=== PATIENT | female | born 2000 | race African-American/Black ===

== ENCOUNTER 2019-06-13 16:11 | Inpatient (IN) ==
[2019-06-13 17:02] LABS: Apearance,Urine CLEAR (Clear); Bacteria,Urine Occasional /HPF (Few); Bilirubin,Urine Negative (Negative); Blood, Urine Negative (Negative); Glucose,Urine (UA) Negative (Negative); Ketones,Urine Negative (Negative); Mucus,Urine Occasional /LPF (Occasional); Nitrite,Urine Negative (Negative); Protein,Urine Negative; RBC,Urine 3 /HPF (0-4); Squamous Epithelial Cell,Urine Occasional /HPF (0-10); Transitional Epi Cells,Urine Occasional /HPF (<1); Urine Color Yellow (Yellow); Urine Specific Gravity 1.015 (1.001-1.035); WBC,Urine 6 /HPF (0-6)
[2019-06-13] MEDS ORDERED: LACTATED RINGERS 1,000 ML IV SCH ×2 (17:06→19:00)
[2019-06-13] MEDS ORDERED: ONDANSETRON 4 MG/2 ML VIAL IV PRN (17:08)
[2019-06-13] MEDS ORDERED: TERBUTALINE 1 MG/1 ML VIAL SUBCUT PRN (17:08)
[2019-06-13] MEDS ORDERED: LACTATED RINGERS 1,000 ML IV ONE (17:08)
[2019-06-13] MEDS ORDERED: MEPERIDINE 50 MG/1 ML VIAL IV PRN (17:08)
[2019-06-13] MEDS ORDERED: TERBUTALINE 1 MG/1 ML VIAL SUBCUT ONE (17:19)
[2019-06-13] MEDS ORDERED: ONDANSETRON 4 MG/2 ML VIAL ONE (17:20)
[2019-06-13] MEDS ORDERED: MEPERIDINE 50 MG/1 ML VIAL ONE (17:20)
[2019-06-13 18:57] LABS: Basophils % 0.4 % (0.0-0.8); Eosinophils # 0.1 10*3/uL (0.0-0.87); Eosinophils % 0.9 % (0.00-10.9); Hemoglobin 8.2 GM/DL (12.0-16.0); Immature Granulocytes % 0.6 %; Immature Granulocytes Absolute 0.06 #; Lymphocytes # 2.1 10*3/uL (1.4-4.0); Lymphocytes % 19.8 % (21.3-54.2); Mean Corpuscular HGB Conc 29.3 GM/DL (32-36); Mean Corpuscular Volume 72.2 FL (87-102); Mean Platelet Volume 11.1 FL (9.6-12.0); Monocytes % 9.4 % (1.7-12.7); NRBC # 0.03 10*3/uL; Neutrophils % 68.9 % (38.7-73.9); Platelet Count 228 T/CUMM (130-400); Red Blood Count 3.88 MC/CUMM (3.8-5.5); Red Cell Distribution Width 18.6 % (9.3-17.3); White Blood Count 10.3 T/CUMM (4-12)
[2019-06-13 19:19] LABS: Albumin 2.9 G/DL (3.4-5.0); Bilirubin,Total 0.5 MG/DL (0.2-1.0); Calcium 8.8 MG/DL (8.5-10.1); Osmolality,Calculated 269.8 MOS/KG (273-304)
[2019-06-13] MEDS: CLINDAMYCIN INJ 900 MG in PREMIX 1 EACH IV SCH (19:39)
[2019-06-14] MEDS ORDERED: ALUMINUM/MAGNES/SIMETH MAX STR 30 ML UDCUP PO PRN (00:45)
[2019-06-14] MEDS: CLINDAMYCIN INJ 900 MG in PREMIX 1 EACH IV SCH ×2 (03:05→10:41)
[2019-06-14] MEDS ORDERED: OXYTOCIN/LR 20 UNIT/1,000 ML BAG IV SCH (07:00)
[2019-06-14] MEDS ORDERED: ePHEDrine 50 MG/ML AMP IV PRN (08:44)
[2019-06-14] MEDS ORDERED: PROMETHAZINE 25 MG/1 ML VIAL IM ONE (08:44)
[2019-06-14] MEDS ORDERED: NALOXONE 0.4 MG/ML VIAL IV PRN (08:44)
[2019-06-14] MEDS ORDERED: ONDANSETRON 4 MG/2 ML VIAL IV ONE (08:44)
[2019-06-14] MEDS ORDERED: CITRIC ACID/SODIUM CITRATE 30 ML UDCUP PO ONE (08:44)
[2019-06-14] MEDS ORDERED: diphenhydrAMINE 50 MG/1 ML VIAL IV PRN ×2 (08:44)
[2019-06-14] MEDS ORDERED: FAMOTIDINE 20 MG/2 ML VIAL IV ONE (08:44)
[2019-06-14] MEDS ORDERED: hydrOXYzine HCL 25 MG/1 ML VIAL IM PRN (08:44)
[2019-06-14] MEDS ORDERED: LACTATED RINGERS 1,000 ML IV ONE (08:44)
[2019-06-14] MEDS ORDERED: fentaNYL 2 MCG/ROPIV 0.2% EPID 100 ML EPIDURAL SCH (09:00)
[2019-06-14] MEDS ORDERED: OXYTOCIN/LR 20 UNIT/1,000 ML BAG IV ONE (10:18)
[2019-06-14] MEDS ORDERED: TRANEXAMIC ACID 1,000 MG/10 ML VIAL ONE (10:18)
[2019-06-14] MEDS ORDERED: LIDOCAINE 1% 50 ML VIAL ONE (10:18)
[2019-06-14] MEDS ORDERED: miSOPROStoL 200 MCG TABLET ONE (10:18)
[2019-06-14] MEDS ORDERED: METHYLERGONOVINE 0.2 MG/1 ML AMP ONE (10:18)
[2019-06-14] MEDS ORDERED: CARBOPROST TROMETHAMINE 250 MCG/ML AMP IM ONE (10:19)
[2019-06-14 11:44] LABS: Cord Arterial Blood HCO3 21.1 MMOL/L
[2019-06-14 11:45] LABS: Cord Venous Blood HCO3 22.7 MMOL/L; Cord Venous Blood PCO2 38.3 MMHG; Cord Venous Blood PO2 29.7 MMHG
[2019-06-14] MEDS ORDERED: LANOLIN 50% CREAM 0.3 OZ TUBE TOP PRN (13:51)
[2019-06-14] MEDS ORDERED: WITCH HAZEL PADS 100/JAR TOP PRN (13:51)
[2019-06-14] MEDS ORDERED: DIPH/TET/ACEL PERT BOOSTER VACCINE 0.5 ML VIAL IM ONE (13:51)
[2019-06-14] MEDS ORDERED: HYDROCORTISONE 2.5% RECTAL CREAM 30 GM TUBE TOP PRN (13:51)
[2019-06-14] MEDS ORDERED: BISACODYL 10 MG SUPP RECTAL PRN (13:51)
[2019-06-14] MEDS ORDERED: MEASLES/MUMPS/RUBELLA VACCINE 0.5 ML VIAL SUBCUT ONE (13:51)
[2019-06-14] MEDS ORDERED: ACETAMINOPHEN 325 MG TABLET PO PRN (13:51)
[2019-06-14] MEDS ORDERED: oxyCODONE/ACETAMINOPHEN 5-325 MG TABLET PO PRN ×2 (13:51)
[2019-06-14] MEDS ORDERED: BENZOCAINE 20%/MENTHOL 0.5% SPRAY 56 GM CAN TOP PRN (13:51)
[2019-06-14] MEDS ORDERED: RHO(D) IMMUNE GLOBULIN 300 MCG SYRINGE IM ONE (13:51)
[2019-06-14] MEDS: IBUPROFEN 800 MG TABLET PO PRN (20:05)
[2019-06-14] MEDS: DOCUSATE SODIUM 100 MG CAPSULE PO SCH (21:26)
[2019-06-15] MEDS: IBUPROFEN 800 MG TABLET PO PRN ×2 (03:41→23:18)
[2019-06-15 06:07] LABS: Basophils # 0.1 10*3/uL (0.0-0.2); Basophils % 0.5 % (0.0-0.8); Eosinophils # 0.1 10*3/uL (0.0-0.87); Hematocrit 25.2 VOL% (35.7-47.0); Hemoglobin 7.4 GM/DL (12.0-16.0); Immature Granulocytes % 0.7 %; Immature Granulocytes Absolute 0.06 #; Lymphocytes # 2.2 10*3/uL (1.4-4.0); Lymphocytes % 24.5 % (21.3-54.2); Mean Corpuscular HGB Conc 29.4 GM/DL (32-36); Mean Platelet Volume 10.9 FL (9.6-12.0); Monocytes % 11.4 % (1.7-12.7); Neutrophils % 61.9 % (38.7-73.9); Platelet Count 200 T/CUMM (130-400); Red Blood Count 3.55 MC/CUMM (3.8-5.5); Red Cell Distribution Width 18.5 % (9.3-17.3); White Blood Count 9.1 T/CUMM (4-12)
[2019-06-15] MEDS: FERROUS SULFATE 325 MG TABLET PO SCH ×2 (07:42→20:58)
[2019-06-15] MEDS: DOCUSATE SODIUM 100 MG CAPSULE PO SCH ×2 (07:42→20:58)
[2019-06-15] MEDS ORDERED: SODIUM CHLORIDE 0.9% 1,000 ML IV PRN (09:07)
[2019-06-15] MEDS ORDERED: FUROSEMIDE 40 MG/4 ML VIAL IV ONE (11:00)
[2019-06-15] MEDS ORDERED: ACETAMINOPHEN/CODEINE 300-30 MG TABLET PO PRN ×2 (17:31)
[2019-06-15 18:28] LABS: Hematocrit 35.6 VOL% (35.7-47.0); Hemoglobin 10.9 GM/DL (12.0-16.0)
[2019-06-16 05:14] LABS: Basophils # 0.1 10*3/uL (0.0-0.2); Basophils % 0.7 % (0.0-0.8); Eosinophils # 0.3 10*3/uL (0.0-0.87); Eosinophils % 2.4 % (0.00-10.9); Hematocrit 32.4 VOL% (35.7-47.0); Hemoglobin 9.9 GM/DL (12.0-16.0); Immature Granulocytes % 0.5 %; Immature Granulocytes Absolute 0.05 #; Lymphocytes # 2.4 10*3/uL (1.4-4.0); Lymphocytes % 22.2 % (21.3-54.2); Mean Corpuscular HGB Conc 30.6 GM/DL (32-36); Mean Corpuscular Volume 73.6 FL (87-102); Mean Platelet Volume 10.8 FL (9.6-12.0); Monocytes % 7.9 % (1.7-12.7); Neutrophils % 66.3 % (38.7-73.9); Platelet Count 239 T/CUMM (130-400); Red Cell Distribution Width 19.7 % (9.3-17.3); White Blood Count 10.7 T/CUMM (4-12)
[2019-06-16] MEDS: IBUPROFEN 800 MG TABLET PO PRN (05:30)
[2019-06-16] MEDS: DOCUSATE SODIUM 100 MG CAPSULE PO SCH (09:57)
[2019-06-16] MEDS: FERROUS SULFATE 325 MG TABLET PO SCH (09:57)
[2019-06-16 11:32] VITALS: BP 136/89
== END 2019-06-16 13:35 | disposition home or self-care (01) | DRG 560 ==
LOC: N.LDOUT 16:11 → N.LD 16:13 → N.OB 06-14 13:37
PROVIDERS: ADMIT Obstetrics & Gynecology; ATTEND Obstetrics & Gynecology

== ENCOUNTER 2021-12-12 12:32 | Inpatient (IN) ==
[2021-12-12] MEDS ORDERED: LACTATED RINGERS 1,000 ML IV ONE (13:19)
[2021-12-12 13:21] LABS: Mucus,Urine Occasional /LPF (Occasional); RBC,Urine 2 /HPF (0-4); Squamous Epithelial Cell,Urine Occasional /HPF (0-10)
[2021-12-12 13:22] LABS: Glucose,Urine (UA) Negative (Negative); Protein,Urine Negative (Negative); Urine Appearance Clear (Clear); Urine Color Yellow (Yellow); Urine Specific Gravity 1.025 (1.001-1.035)
[2021-12-12 13:23] LABS: Bilirubin,Urine Negative (Negative); Blood, Urine Moderate mg/dL (Negative); Ketones,Urine >=160 mg/dL (Negative); Nitrite,Urine Negative (Negative); Urine Urobilinogen 0.2 eU/dL (<2.0)
[2021-12-12] MEDS ORDERED: MEPERIDINE 50 MG/1 ML VIAL IV PRN (14:06)
[2021-12-12] MEDS ORDERED: ONDANSETRON 4 MG/2 ML VIAL IV PRN ×2 (14:06→20:03)
[2021-12-12] MEDS ORDERED: TRANEXAMIC ACID 1,000 MG in SODIUM CHLORIDE 0.9% 100 ML IV PRN (14:53)
[2021-12-12] MEDS ORDERED: miSOPROStoL 200 MCG TABLET RECTAL PRN (14:53)
[2021-12-12] MEDS ORDERED: OXYTOCIN/LR 20 UNIT/1,000 ML BAG IV ONE ×2 (14:53→20:03)
[2021-12-12] MEDS ORDERED: METHYLERGONOVINE 0.2 MG/1 ML AMP IM PRN (14:53)
[2021-12-12] MEDS ORDERED: BUTORPHANOL 2 MG/ML VIAL IV PRN (14:53)
[2021-12-12] MEDS ORDERED: CARBOPROST TROMETHAMINE 250 MCG/ML AMP IM PRN (14:53)
[2021-12-12] MEDS ORDERED: BETAMETH SODIUM PHOS/ACETATE 30 MG/5 ML VIAL IM ONE (14:55)
[2021-12-12] MEDS ORDERED: diphenhydrAMINE 50 MG/1 ML VIAL IV PRN (14:57)
[2021-12-12] MEDS ORDERED: ePHEDrine 50 MG/ML VIAL IV PRN (14:57)
[2021-12-12] MEDS ORDERED: NALOXONE 0.4 MG/ML VIAL IV PRN (14:57)
[2021-12-12] MEDS ORDERED: CITRIC ACID/SODIUM CITRATE 30 ML UDCUP PO ONE (14:57)
[2021-12-12] MEDS ORDERED: FAMOTIDINE 20 MG/2 ML VIAL IV ONE (14:57)
[2021-12-12] MEDS ORDERED: hydrOXYzine HCL 25 MG/1 ML VIAL IM PRN (14:57)
[2021-12-12] MEDS ORDERED: PROMETHAZINE 25 MG/1 ML VIAL IM PRN (14:57)
[2021-12-12] MEDS ORDERED: OXYTOCIN/LR 20 UNIT/1,000 ML BAG IV SCH (15:00)
[2021-12-12] MEDS ORDERED: fentaNYL 2 MCG/ROPIV 0.2% EPID 100 ML EPIDURAL SCH (15:00)
[2021-12-12] MEDS: LACTATED RINGERS 1,000 ML IV SCH ×2 (15:19→19:30)
[2021-12-12] MEDS ORDERED: LEVOFLOXACIN INJ 500 MG/100 ML PREMIX IV ONE (16:00)
[2021-12-12 16:06] LABS: Basophils % 0.4 % (0.0-0.8); Eosinophils # 0.1 10*3/uL (0.0-0.87); Eosinophils % 0.5 % (0.00-10.9); Hematocrit 32.1 VOL% (35.7-47.0); Hemoglobin 9.7 GM/DL (12.0-16.0); Immature Granulocytes % 0.6 %; Immature Granulocytes Absolute 0.06 #; Lymphocytes # 1.7 10*3/uL (1.4-4.0); Lymphocytes % 16.8 % (21.3-54.2); Mean Corpuscular HGB Conc 30.2 GM/DL (32-36); Mean Corpuscular Volume 75.9 FL (87-102); Mean Platelet Volume 10.1 FL (9.6-12.0); Monocytes # 0.7 10*3/uL (0.11-0.8); Monocytes % 7.1 % (1.7-12.7); Neutrophils % 74.6 % (38.7-73.9); Platelet Count 272 T/CUMM (130-400); Red Blood Count 4.23 MC/CUMM (3.8-5.5); Red Cell Distribution Width 15.9 % (9.3-17.3); White Blood Count 10.3 T/CUMM (4-12)
[2021-12-12 16:48] LABS: Bilirubin,Total 0.8 MG/DL (0.20-1.00); Calcium 9.5 MG/DL (8.5-10.1); Potassium 3.9 MMOL/L (3.5-5.1)
[2021-12-12 18:07] LABS: Mucus,Urine Occasional /LPF (Occasional)
[2021-12-12 18:21] LABS: Bilirubin,Urine Negative (Negative); Blood, Urine Trace mg/dL (Negative); Glucose,Urine (UA) Negative (Negative); Ketones,Urine >=160 mg/dL (Negative); Nitrite,Urine Negative (Negative); Protein,Urine Negative (Negative); Urine Appearance Clear (Clear); Urine Color Yellow (Yellow); Urine Specific Gravity 1.025 (1.001-1.035); Urine pH 5.5 (4.5-8.0)
[2021-12-12 18:22] LABS: Urine Urobilinogen 0.2 eU/dL (<2.0)
[2021-12-12] MEDS ORDERED: TERBUTALINE 1 MG/1 ML VIAL ONE (19:21)
[2021-12-12] MEDS ORDERED: OXYTOCIN/LR 30 UNIT/1,000 ML BAG IV ONE (19:25)
[2021-12-12] MEDS ORDERED: WITCH HAZEL PADS 100/JAR TOP PRN (20:03)
[2021-12-12] MEDS ORDERED: BENZOCAINE 20%/MENTHOL 0.5% SPRAY 56 GM CAN TOP PRN (20:03)
[2021-12-12] MEDS ORDERED: DIPH/TET/ACEL PERT BOOSTER VACCINE 0.5 ML VIAL IM ONE (20:03)
[2021-12-12] MEDS ORDERED: MEASLES/MUMPS/RUBELLA VACCINE 0.5 ML VIAL SUBCUT ONE (20:03)
[2021-12-12] MEDS ORDERED: ACETAMINOPHEN 325 MG TABLET PO PRN (20:03)
[2021-12-12] MEDS ORDERED: RHO(D) IMMUNE GLOBULIN 300 MCG SYRINGE IM ONE (20:03)
[2021-12-12] MEDS ORDERED: oxyCODONE/ACETAMINOPHEN 5-325 MG TABLET PO PRN ×2 (20:03)
[2021-12-12] MEDS ORDERED: HYDROCORTISONE 2.5% RECTAL CREAM 30 GM TUBE TOP PRN (20:03)
[2021-12-12] MEDS ORDERED: LANOLIN 50% CREAM 0.3 OZ TUBE TOP PRN (20:03)
[2021-12-12] MEDS ORDERED: BISACODYL 10 MG SUPP RECTAL PRN (20:03)
[2021-12-12 20:39] LABS: Cord Venous Blood HCO3 18.9 MMOL/L; Cord Venous Blood PCO2 38.9 MMHG; Cord Venous Blood PO2 23.5
[2021-12-12 20:40] LABS: Cord Arterial Blood HCO3 18.1 MMOL/L
[2021-12-13 06:30] LABS: Basophils % 0.1 % (0.0-0.8); Hematocrit 31.7 VOL% (35.7-47.0); Hemoglobin 9.7 GM/DL (12.0-16.0); Immature Granulocytes % 1.2 %; Immature Granulocytes Absolute 0.17 #; Lymphocytes # 1.2 10*3/uL (1.4-4.0); Mean Corpuscular HGB Conc 30.6 GM/DL (32-36); Mean Corpuscular Volume 74.9 FL (87-102); Mean Platelet Volume 10.4 FL (9.6-12.0); Monocytes # 0.8 10*3/uL (0.11-0.8); Monocytes % 5.7 % (1.7-12.7); Platelet Count 276 T/CUMM (130-400); Red Blood Count 4.23 MC/CUMM (3.8-5.5); Red Cell Distribution Width 15.7 % (9.3-17.3); White Blood Count 14.5 T/CUMM (4-12)
[2021-12-13] MEDS: DOCUSATE SODIUM 100 MG CAPSULE PO SCH ×2 (08:35→21:29)
[2021-12-13] MEDS: CIPROFLOXACIN 500 MG TABLET PO SCH ×2 (09:28→21:29)
[2021-12-13] MEDS: IBUPROFEN 800 MG TABLET PO PRN (13:31)
[2021-12-14] MEDS: IBUPROFEN 800 MG TABLET PO PRN (02:51)
[2021-12-14] MEDS: DOCUSATE SODIUM 100 MG CAPSULE PO SCH (09:30)
[2021-12-14] MEDS: CIPROFLOXACIN 500 MG TABLET PO SCH (09:30)
[2021-12-14 09:42] VITALS: BP 116/58
== END 2021-12-14 15:35 | disposition home or self-care (01) | DRG 560 ==
LOC: N.LDOUT 12:32 → N.LD 12:34 → N.OB 23:12
PROVIDERS: ADMIT Obstetrics & Gynecology; ATTEND Obstetrics & Gynecology